=== PATIENT | female | born 1950 | race Caucasian/White ===

== ENCOUNTER → 2016-03-30 | Outpatient (CLI) | payer OTHER ==
--- NOTE | 2016-03-30 09:21 | MA ---
Screening Digital Mammogram with Digital Breast Tomosynthesis Clinical Indications: Routine screening. Previous history of right-sided breast cancer. The patient u nderwent lumpectomy along with chemotherapy and radiation therapy. Technique: Standard cephalocaudal projections are obtained. Digital breast tomosynthesis was perform ed in the MLO projection with reconstruction at 1.0 mm slice thickness and composite MLO views recons tructed. This examination is processed by the CAD computer aided detection system. Comparison: March 29, 2015; March 25, 2014; and studies dating back to November 13, 2007. Breast density: B; There are scattered areas of fibroglandular density. Findings: CAD was reviewed. There are no new masses, new clusters of microcalcifications, or significant axillary lymphadenopathy . Impression: Negative mammogram. BI-RADS 1. Recommendation: Routine screening mammogram is recommended in one year. [facility] will send a result letter to the patient. Negative mammography should not preclude additional workup of a clinically suspicious finding. The patient's information is entered into a reminder system with a target due date for her next mammo gram.
== END ==
LOC: FIMAGING 08:27
DX: Z12.31 Encounter for screening mammogram for malignant neoplasm of breast (principal); Z85.3 Personal history of malignant neoplasm of breast
CPT/HCPCS: G0202

== ENCOUNTER → 2017-04-05 | Outpatient (CLI) | payer OTHER | LOC: FIMAGING 07:52 | PROVIDERS: ATTEND Internal Medicine | DX: Z12.31 Encounter for screening mammogram for malignant neoplasm of breast (principal); Z85.3 Personal history of malignant neoplasm of breast ==

== ENCOUNTER 2017-11-21 13:17 | Inpatient (IN) | payer OTHER ==
--- NOTE | 2017-11-21 13:23 | EDPHY ---
H & P Stated Complaint: Hit head on Sunday. Confusion feels "out of it" Time Seen by Provider: 11/21/17 13:23 HPI/ROS: CHIEF COMPLAINT: Persistent headache, mild confusion HISTORY OF PRESENT ILLNESS: The patient presents the emergency department with complaints of a persistent frontal and occipital headache and mild confusion and concussive symptoms since falling and striking her head on Sunday. The patient is not anticoagulated. She denies any acute neck pain. She did sustain some bruising primarily to the left side of her body and face. She denies any acute bony tenderness in her arms or legs. She denies chest pain or shortness of breath. She denies any focal numbness or weakness. The patient denies prior history of head injury. Past medical history is noted reviewed per nurse's note. REVIEW OF SYSTEMS: A comprehensive 10 point review of systems is otherwise negative aside from elements mentioned in the history of present illness. Source: Patient Exam Limitations: No limitations - Personal History Current Tetanus/Diphtheria Vaccine: Yes - Medical/Surgical History Hx Asthma: No Hx Chronic Respiratory Disease: No Hx Diabetes: Yes Hx Cardiac Disease: No Hx Renal Disease: No Hx Cirrhosis: No Hx Alcoholism: No Hx HIV/AIDS: No Hx Splenectomy or Spleen Trauma: No Other PMH: HTN, Breast CA w/ chemo&rad, hypothyroidism, DM2; L Rib fx x2;. PSH : mitul; hysterectomy; R breast lumpectomy; wisdom teeth; T&A - Social History Smoking Status: Never smoked - Physical Exam Exam: General Appearance: Alert, no distress Head: Mild ecchymoses noted at the corner of the left mouth, no palpable hematoma Eyes: Pupils equal, round, reactive ENT, Mouth: No hemotympanum, no oral trauma Neck: Nontender, trachea midline, cleared via nexus criteria Respiratory: No chest wall tender, subcutaneous air, lungs clear bilaterally Cardiovascular: Regular rate and rhythm Abdomen: Abdomen is soft and nontender, pelvis stable Skin: Superficial ecchymoses noted to the extremities Back: No midline T/L/S pain Extremities: Nontender, full range of motion Neurological: A&Ox3, normal motor function, normal sensory exam Constitutional: Initial Vital Signs Temperature (C) 36.9 C 11/21/17 13:18 Heart Rate 72 11/21/17 13:18 Respiratory Rate 16 08/29/18 13:18 Blood Pressure 176/93 H 11/21/17 13:18 O2 Sat (%) 95 11/21/17 13:18 O2 Delivery Mode Room Air Allergies/Adverse Reactions: codeine [Codeine] Allergy (Verified 11/08/11 14:58) Home Medications: Medication Instructions Recorded Levothyroxine [Levothroid] 175 mcg PO DAILY 09/22/10 Citalopram Hydrobromide [celeXA 10 10 mg PO DAILY 11/08/11 MG] Levothyroxine [Synthroid 175 mcg 175 mcg PO DAILY #14 tab 11/08/11 (RX)] Pharmacy Completed 11/08/11 11/08/11 Valsartan [Diovan] 320 mg PO DAILY 11/08/11 Zolpidem Tartrate [Ambien 5MG (RX)] 5 mg PO HS PRN 11/08/11 metFORMIN HCL [Glucophage 1000 mg] 1,000 mg PO BIDMEAL 11/08/11 Hydrocodone/APAP 5/325 [[place] 1 - 2 tab PO Q4H PRN #14 tab 03/01/15 5/325] Hydrocodone/APAP 5/325 [[place] 1 - 2 each PO Q4-6PRN PRN #20 tab 04/05/15 5/325] Hydrocodone/APAP 5/325 [[place] 1 - 2 tab PO Q4H PRN #15 tab 05/06/15 5/325 (*)] Tramadol HCl 50 mg PO TID PRN #15 tablet 05/06/15 Medical Decision Making - Diagnostics Imaging Results: Imaging Impressions Head CT 11/21/17 13:23 Impression: Small left subdural hematoma with minimal left to right shift. Results called to Dr. Slava Martinez at 2:15 PM General information for patients regarding this examination can be found at [email or web address]. If you have questions or comments about this report, please contact me at [phone] (hospital) or [phone] (cell). ED Course/Re-evaluation: The patient presents to the ED with an ongoing moderate to severe frontal and occipital headache, bilateral in nature since striking her head approximately 4 days ago. The patient is noted to be neurologically intact. Given the duration of her symptoms with concussive symptoms a CT scan of the brain has been ordered to evaluate for intracranial hemorrhage or fracture. Patient's head CT scan does demonstrate a very small 7 mm left-sided subdural hematoma with less than 1 mm of shift. The patient is currently not anticoagulated. She takes no anti-platelet agents. She is neurologically intact. Consultation was made with Neurosurgery at 2:[address] Richar Springer from Neurosurgery evaluated the patient. He does recommend admission to the hospital under the care of the hospitalist service. I did consult with Dr. Stewart who said it would be appropriate to admit the patient to Medicine given this is a delayed presentation of a traumatic injury. Consultation was made with the hospitalist service at 4:00 p.m.. I spoke with Dr. Gary Montero who will admit the patient. Blood pressure management will be deferred to Medicine. Differential Diagnosis: Differential diagnosis considered includes fracture, sprain, dislocation, concussion Departure - Departure Disposition: [facility] Inpatient Acute Clinical Impression: Subdural hematoma Condition: Good Referrals: Claude Collier MD [Primary Care Provider] - As per Instructions
--- NOTE | 2017-11-21 15:27 | GCON ---
[f rep st] CONSULTATION NEUROSURGICAL CONSULTATION CHIEF COMPLAINT: The patient is a 67-year-old woman with headaches. HISTORY OF PRESENT ILLNESS: The patient reports falling on her face approximately 4 days ago and has had worsening headaches since then. Her headache is worse today than it was yesterday and is descri bed as a dull ache. She denies any focal neurologic deficits and presented to the emergency room for evaluation because of the worsening headaches. She has been taking Aleve for her pain. PAST MEDICAL AND SURGICAL HISTORY: Anxiety, hypothyroidism, hypertension, type 2 diabetes, and obesi ty. MEDICATIONS ON ADMISSION: Metformin, Synthroid, Zoloft, and trazodone. DRUG ALLERGIES: Codeine, which causes stomach pain and back pain. SOCIAL HISTORY: The patient lives alone and does not drink or smoke. GENERAL MEDICAL EXAMINATION: The lungs are clear. Cardiovascular examination reveals a regular rate and rhythm. NEUROLOGIC EXAMINATION: The patient is awake, alert, and oriented x4. Her speech is fluent and appr opriate. Extraocular movements are intact. She has 5/5 strength throughout, and reflexes and sensat ion are within normal limits. DIAGNOSTIC STUDIES: CT scan of the brain demonstrates an approximately 9 mm thick acute subdural hem atoma in the left frontal convexity without significant mass effect, shift, or evidence of hydrocepha chantal. IMPRESSION/RECOMMENDATIONS: This is a 67-year-old woman with progressively worsening headaches after a fall. She has an acute subdural. It is not all that big, but the fact that her headaches are wor sening is a little bothersome along with the fact that she has been taking Aleve, which is a blood th inner. She also lives at home, so I am reluctant to send her home in that situation. In addition, er blood pressure is currently 201/77. I would like to put her on Keppra for 2 weeks, admit her to [facility] overnight for observation, repeat the head CT in the morning, and, if she looks good and the head CT is stable, then she can go home at that time. /[id number]/MODL
[2017-11-21] MEDS ORDERED: levETIRAcetam 500 MG TAB PO ONE (16:19)
[2017-11-21] MEDS ORDERED: PROMETHAZINE HCL 25 MG/ML INJ IVP PRN (17:39)
[2017-11-21] MEDS ORDERED: hydrALAZINE 20 MG/ML VIAL IVP PRN (17:39)
[2017-11-21] MEDS ORDERED: LORazepam 0.5 MG TAB PO PRN (17:39)
[2017-11-21] MEDS ORDERED: ONDANSETRON 4 MG/2 ML VIAL IVP PRN (17:39)
[2017-11-21] MEDS ORDERED: oxyCODONE IR 5 MG TAB PO PRN (17:39)
[2017-11-21] MEDS ORDERED: HYDROmorphONE/DILAUDID 1 MG/ML INJ IVP PRN (17:39)
[2017-11-21] MEDS ORDERED: ONDANSETRON DISINTEGRATING 4 MG TAB PO PRN (17:39)
[2017-11-21] MEDS ORDERED: FLUTICASONE NASAL 120 SPRAYS/16 GM MDI EACHNARE PRN (17:42)
[2017-11-21] MEDS: ACETAMINOPHEN 325 MG TAB PO PRN (18:29)
[2017-11-21] MEDS: LOSARTAN POTASSIUM 50 MG TAB PO SCH (18:31)
--- NOTE | 2017-11-21 18:45 | PDGENHP ---
History and Physical - Chief Complaint headache - History of Present Illness 67 yo F with PMH that includes DM2 and HTN presenting with headache and mild confusion following a fall on her face 4 days prior. Patient notes she had been leaving her grandson's football game when she tripped over a speedbump and fell flat on her face. She did not lose consciousness and at the time felt that she had not sustained major injuries. When her headache and mild confusion did not seem to be improving she decided to come to the ER for further eval. She notes that she did not take any of her usual medications today due to coming to the ER. She otherwise states she feels fine and in fact has plans to return to work as soon as tomorrow if she is cleared medically for that. History Information - Allergies/Home Medication List Allergies/Adverse Reactions: codeine [Codeine] Allergy (Verified 11/21/17 16:57) Home Medications: Levothyroxine [Levothroid] 175 mcg PO DAILY 09/22/10 [Last Taken 11/20/17] metFORMIN HCL [Glucophage 1000 mg] 1,000 mg PO BIDMEAL 11/08/11 [Last Taken ] Fluticasone Nasal [Flonase Nasal [place] (RX)] 1 sprays [place] DAILY PRN [Last Taken 11/20/17] Losartan Potassium 100 mg PO BID 11/21/17 [Last Taken 11/20/17] Naproxen Sodium [Aleve 220 MG (*)] 220 mg PO BID PRN 11/21/17 [Last Taken ] Sertraline HCl [Zoloft 50mg (*)] 50 mg PO DAILY 11/21/17 [Last Taken 11/20/17] Simvastatin 20 mg PO HS 11/21/17 [Last Taken 11/20/17] amLODIPine BESYLATE [Norvasc 5 mg (*)] 5 mg PO DAILY 11/21/17 [Last Taken ] glipiZIDE [Glipizide] 5 mg PO BID 11/21/17 [Last Taken 11/20/17] traZODone [traZODONE 50MG (*)] 50 mg PO HS 11/21/17 [Last Taken 11/20/17] I have personally reviewed and updated: family history, medical history, social history, surgical history - Past Medical History diabetes type 2, hypertension, hyperlipidemia, psychiatric history (anxiety/ depression) Additional medical history: hypothyroid. obesity - Surgical History Reports: no pertinent surgical hx - Family History Positive for: CAD, stroke - Social History Smoking Status: Never smoked Alcohol Use: None Drug Use: None Additional social history: , lives alone, works here at [employer], has 1 son and 1 grandson Review of Systems Review of Systems: ROS: 10pt was reviewed & negative except for what was stated in HPI & below Physical Exam Physical Exam: Temp Pulse Resp BP Pulse Ox 36.9 C 68 18 180/77 H 96 11/21/17 13:18 11/21/17 16:58 11/21/17 16:58 11/21/17 18:31 11/21/17 16:58 Constitutional: no apparent distress, appears nourished Eyes: PERRL Ears, Nose, Mouth, Throat: moist mucous membranes, hearing normal Cardiovascular: regular rate and rhythym, no murmur, rub, or gallop, No edema Respiratory: no respiratory distress, no rales or rhonchi, clear to auscultation Gastrointestinal: normoactive bowel sounds, soft, non-tender abdomen Genitourinary: no bladder fullness Skin: warm, normal color Musculoskeletal: full muscle strength Neurologic: AAOx3, CN II-XII Intact Psychiatric: interacting appropriately Lab Data & Imaging Review Visualized and Interpreted imaging results: Yes Interpretation: head CT: small left SDH with slight midline shift Assessment & Plan Assessment: Subdural hematoma (Acute) 67 yo F with PMH of HTN and DM presenting several days post head injury with small SDH # SDH: relatively small and patient does appear to be neurologically intact. Appreciate NSG eval. Will plan to monitor overnight given uncontrolled HTN and ongoing TOVAR, serial neuro exams. Will have pt/ot eval. Did discuss with patient that given brain injury, recommendation would be for "low stimulation" at least until she is asymptomatic and therefore would not recommend she return to work in am. # HTNsive urgency: with BP in the 190s in the ER in the setting of being off of her medications, will resume home meds as well as PRN hydralazine and monitor for now, goal sbp < 140 # DM2: will hold metoprolol in house in case further imaging becomes necessary, SSI, last A1c was 8.0 # hypothyroid: will continue lt4 # admit to IP status, given high risk presenting issues she will likely require > 48 hours stay for eval/mgmt of above Patient new to my care. Old records reviewed and summarized as above. Care plan reviewed with ER doctor as above.
[2017-11-21 19:26] LABS: PLATELET COUNT 206 10^3/uL (150-400)
[2017-11-21] MEDS: HYDROCODONE/APAP 5/325 TAB PO PRN (20:36)
[2017-11-21] MEDS ORDERED: ATORVASTATIN CALCIUM 10 MG TAB PO SCH (21:00)
[2017-11-21] MEDS ORDERED: traZODone 50 MG TAB PO SCH (21:00)
[2017-11-21] MEDS ORDERED: LOSARTAN POTASSIUM 50 MG TAB PO SCH (21:00)
[2017-11-22] MEDS: ACETAMINOPHEN 325 MG TAB PO PRN (00:19)
[2017-11-22 07:07] LABS: PLATELET COUNT 175 10^3/uL (150-400)
--- NOTE | 2017-11-22 07:12 | PDMN ---
Medical Necessity Medical necessity: Pt meets inpt criteria per MD order and [facility] [place] Traumatic Brain [place], Non-surgical Treatment, 2 days. Est LOS>2MN for eval/management of subdural hematoma, high risk presenting issues. Pt presented w/worsening headaches, mild confusion, and concussive symptoms and hypertension after recent fall in which she hit her head. CT of head confirms sm L SDH w/slight midline shift, BP in 190's upon arrival to ER. Neurosurg consult, IV Hydralazine as needed, frequent neuro checks, pain control, PT/OT/SP evals pending.
--- NOTE | 2017-11-22 07:32 | SOAPPROG ---
SOAP Progress Note Assessment/Plan: Assessment: 67 yo F with left sided acute subdural hematoma after fall four days ago Plan: neuro: stable and doing well repeat head ct this am at 8 PT/OT/ST please call with neuro changes discussed with Dr Pierce 11/22/17 07:27 11/22/17 07:29 Subjective: continued mild headache, no N/V. No weakness. Objective: Vital Signs Temp Pulse Resp BP Pulse Ox 36.3 C 66 16 120/58 L 93 11/22/17 00:00 11/22/17 00:00 11/22/17 00:00 11/22/17 00:00 11/22/17 00:00 Laboratory Results 11/22/17 06:47 11/21/17 11/22/17 11/23/17 05:59 05:59 05:59 Intake Total 520 Balance 520 AAOx4, +FC PERRL, EOMI, no facial droop 5/5 + light touch ICD10 Worksheet Patient Problems: Problems Problem Status Onset Subdural hematoma Acute
[2017-11-22] MEDS: LOSARTAN POTASSIUM 50 MG TAB PO SCH (08:39)
--- NOTE | 2017-11-22 08:43 | GCON ---
[f rep st] CONSULTATION NEUROLOGIC CONSULTATION. REFERRING PHYSICIAN: Gary Montero MD HISTORY: The patient is a 67-year-old woman whom I am asked to see in neurologic consultation regard ing headache, and she has an acute left subdural hematoma. She says that she had a fall 5 days ago a nd simply fell and struck her face, and was stable and went home, but started developing increased he adache which led to coming to the hospital where the subdural was identified yesterday in the emergen cy room on a CT. She does not have any specific neurologic deficits except perhaps a little bit of t rouble with her speech. The scan showed minimal qetr-mg-cemwm shift and was about 7 mm in width. Dora james has been stable overnight in the ICU. PAST MEDICAL HISTORY: Notable for troubles controlling weight, hypothyroidism, hyperlipidemia. She has type 2 diabetes, hypertension. No smoking or alcohol. She is and works here at the [employer]. FAMILY HISTORY: Stroke and coronary disease. MEDICATION: Tylenol, Lipitor, hydralazine, Keppra which was just added as a prophylactic for seizure risk from Dr. Springer 500 mg twice daily, sertraline, trazodone. ALLERGY: Codeine. REVIEW OF SYSTEMS: Unremarkable except for that noted above. PHYSICAL EXAMINATION: VITAL SIGNS: Blood pressure 120/58, pulse of 66, respirations 16, temperature 36.3. GENERAL: She is overweight, in no acute distress. NECK: Supple, with no bruits or masses. CARDIAC: Regular rate and rhythm with no murmur. NEURO: She is alert and oriented with no cogniti ve impairment. Pupils are 3 mm and reactive. Extraocular movements are intact. Normal facial sensa tion and strength. Motor exam normal. Muscle bulk and tone with 5/5 strength. Preserved sensation. Reflexes 2+ and symmetric. IMPRESSION: Total unit time of 70 minutes. The patient has a left subdural hematoma with minimal [id number] shift, but no measurable neurolog ic deficit. She is going to have a repeat head CT. If that is stable, she is likely to be discharge d after clearance from Neurosurgery and does not need neurologic followup, but followup with Neurosur jaylan as needed as well as her primary care. She is going to work on lifestyle risk factors to help i mprove her cardiovascular health in general. /[id number]/MODL
[2017-11-22 08:46] VITALS: BP 165/87
[2017-11-22] MEDS ORDERED: levETIRAcetam 500 MG TAB PO SCH (09:00)
[2017-11-22] MEDS ORDERED: LEVOTHYROXINE 175 MCG TAB PO SCH (09:00)
[2017-11-22] MEDS ORDERED: SERTRALINE HCL 50 MG TAB PO SCH (09:00)
[2017-11-22] MEDS ORDERED: amLODIPine BESYLATE 5 MG TAB PO SCH (09:00)
[2017-11-22] MEDS ORDERED: metFORMIN HCL 500 MG TAB PO SCH (11:15)
[2017-11-22] MEDS: HYDROCODONE/APAP 5/325 TAB PO PRN (14:02)
== END 2017-11-22 14:30 | disposition home or self-care (01) | DRG 87 ==
LOC: OBSVTOIN 16:37 → F2N 17:04
PROVIDERS: ADMIT Internal Medicine; ATTEND Internal Medicine
DX: S06.5X0A Traumatic subdural hemorrhage without loss of consciousness, initial encounter (principal); W01.198A Fall on same level from slipping, tripping and stumbling with subsequent striking against other object, initial encounter; I10 Essential (primary) hypertension; E11.9 Type 2 diabetes mellitus without complications; E03.9 Hypothyroidism, unspecified; F41.9 Anxiety disorder, unspecified; Y93.82 Activity, spectator at an event; Z85.3 Personal history of malignant neoplasm of breast; Z79.84 Long term (current) use of oral hypoglycemic drugs
CPT/HCPCS: 92523-GN; 97161-GP; 97165-GO; J0360

== ENCOUNTER → 2017-11-28 | Outpatient (CLI) | payer OTHER | LOC: FIMAGING 11:33 | PROVIDERS: ATTEND Neurological Surgery | DX: S06.5X0D Traumatic subdural hemorrhage without loss of consciousness, subsequent encounter (principal) ==

== ENCOUNTER → 2017-12-05 | Outpatient (CLI) | payer OTHER | LOC: FIMAGING 10:39 | PROVIDERS: ATTEND Physician Assistant Surgical | DX: S06.5X0D Traumatic subdural hemorrhage without loss of consciousness, subsequent encounter (principal) ==

== ENCOUNTER 2017-12-16 16:37 | Observation (INO) | payer OTHER ==
--- NOTE | 2017-12-16 16:59 | EDPHY ---
H & P Stated Complaint: Facial droop starting approx 1615 Time Seen by Provider: 12/16/17 16:47 HPI/ROS: CHIEF COMPLAINT: Trouble with word finding HISTORY OF PRESENT ILLNESS: The patient is a 67-year-old female whose friend brings her to the ER with stroke symptoms. At 4:15 p.m. They were talking and her friend noticed that she had trouble finding the correct words. She stated that she could think clearly but could not think of the right words. Friend then noticed slurred speech and droopy face on the right. The symptoms persisted for about half an hour but have improved. She continues to have trouble with word finding. She was admitted to the hospital 3 weeks ago after a traumatic subdural hemorrhage. She was observed and had improvement of her symptoms and discharged without surgery. She is not on any blood thinners. She denies any history of cardiac disease but does have history of hypertension and type 2 diabetes. No headache Severity: Severe Modifying factors: Improved with time REVIEW OF SYSTEMS: Constitutional: denies: chills, fever, recent illness, recent injury EENTM: denies: blurred vision, double vision, nose congestion Respiratory: denies: cough, shortness of breath Cardiac: denies: chest pain, irregular heart rate, lightheadedness, palpitations Gastrointestinal/Abdominal: denies: abdominal pain, diarrhea, nausea, vomiting, blood streaked stools Genitourinary: denies: dysuria, frequency, hematuria, pain Musculoskeletal: denies: joint pain, muscle pain Skin: denies: lesions, rash, jaundice, bruising Neurological: The see HPI Hematologic/Lymphatic: denies: blood clots, easy bleeding, easy bruising Immunologic/allergic: denies: HIV/AIDS, transplant 10 systems reviewed and negative except as noted EXAM: GENERAL: Well-appearing, well-nourished and in no acute distress. HEAD: Atraumatic, normocephalic. EYES: Pupils equal round and reactive to light, extraocular movements intact, sclera anicteric, conjunctiva are normal. ENT: TMs normal, nares patent, oropharynx clear without exudates. Moist mucous membranes. NECK: Normal range of motion, supple without lymphadenopathy or JVD. LUNGS: Breath sounds clear to auscultation bilaterally and equal. No wheezes rales or rhonchi. HEART: Regular rate and rhythm without murmurs, rubs or gallops. ABDOMEN: Soft, nontender, normoactive bowel sounds. No guarding, no rebound. No masses appreciated. BACK: No CVA tenderness, no spinal tenderness, step-offs or deformities EXTREMITIES: Normal range of motion, no pitting or edema. No clubbing or cyanosis. NEUROLOGICAL: Cranial nerves II through XII grossly intact. Clear speech but trouble with word finding and thinking of the correct words. Cannot think of watch or shoe laces or the town that we are in. She can't think of glove and president and some other things. Gait not assessed. 5/5 strength in all extremities, normal movement in all extremities, normal sensation, normal reflexes PSYCH: Normal mood, normal affect. SKIN: Warm, dry, normal turgor, no visible rashes or lesions. Source: Patient Exam Limitations: No limitations - Personal History Current Tetanus/Diphtheria Vaccine: Yes - Medical/Surgical History Hx Asthma: No Hx Chronic Respiratory Disease: No Hx Diabetes: Yes Hx Cardiac Disease: No Hx Renal Disease: No Hx Cirrhosis: No Hx Alcoholism: No Hx HIV/AIDS: No Hx Splenectomy or Spleen Trauma: No Other PMH: HTN, Breast CA w/ chemo&rad, hypothyroidism, DM2; L Rib fx x2;. PSH : mitul; hysterectomy; R breast lumpectomy; wisdom teeth; T&A - Social History Smoking Status: Never smoked Alcohol Use: Sober Drug Use: None Constitutional: Initial Vital Signs Temperature (C) 36.4 C 12/16/17 16:42 Heart Rate 89 12/16/17 16:42 Respiratory Rate 16 12/16/17 16:42 Blood Pressure 203/123 H 12/16/17 16:42 O2 Sat (%) 94 12/16/17 16:42 O2 Delivery Mode Room Air Allergies/Adverse Reactions: codeine [Codeine] Allergy (Verified 12/03/17 15:39) GI Pain Home Medications: Medication Instructions Recorded metFORMIN HCL [Glucophage 1000 mg] 1,000 mg PO BIDMEAL 11/08/11 Fluticasone Nasal [Flonase Nasal 1 sprays EACHNARE DAILY PRN 11/21/17 [facility]] Losartan Potassium 100 mg PO BID 11/21/17 Sertraline HCl [Zoloft 50mg (*)] 50 mg PO DAILY 11/21/17 Simvastatin 20 mg PO HS 11/21/17 glipiZIDE [Glipizide] 5 mg PO BID 11/21/17 traZODone [traZODONE 50MG (*)] 50 mg PO HS PRN 11/21/17 levETIRAcetam [Keppra 500 mg (*)] 500 mg PO BID #60 tab 11/22/17 Acetaminophen [Tylenol ES 500 mg 1,000 mg PO Q6 PRN 12/03/17 (*)] Levothyroxine [Synthroid 150 mcg 150 mcg PO DAILY06 12/03/17 (*)] amLODIPine BESYLATE [Norvasc 5 mg 5 mg PO DAILY 12/16/17 (*)] Medical Decision Making - Diagnostics EKG Interpretation: An EKG obtained and was read and documented in trace view. Please see trace view for full reading and report. 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 Decrease in size of the previously noted left subdural hematoma with resolution of mass effect. 2. No definite acute cortical ischemia is identified. Results called and discussed with Chidi Geronimo MD on December 16, 2017 at 1710 hours. Head CTA 12/16/17 17:10 Impression: Negative CT angiography of the neck with no arterial occlusive disease identified. CT Angiography of the Head With Attention to the [place] Reason for examination: Worsening headache; evaluate for arterial occlusive disease. Technique: A spiral acquisition was performed from the base of the brain to the vertex during rapid intravenous administration of 85 mL of Isovue-370. This contrast volume was utilized for evaluation of the neck and head. Axial images are obtained at 0.6 mm thickness and the examination is reviewed on the workstation in multiple window and level settings. Sagittal and coronal reformats are performed and three-dimensional reformations are performed by the radiologist on the workstation. Dose reduction techniques were utilized. Findings: There is excellent arterial opacification. The great vessels at the base of the brain are normal in appearance. The anterior and middle cerebral arteries appear normal. The [place] is intact with both anterior and posterior communicating arteries identified. The basilar artery as well as posterior cerebral arteries are normal. No regions of stenosis are identified. No hemorrhages are seen and no vascular malformations are identified. No areas of abnormal perfusion are identified and there are no findings to suggest cortical ischemia. The left subdural hematoma is noted and this was described on noncontrast CT scan of the head performed earlier today. Impression: 1. Negative CT angiography of the head with attention to the great vessels of the [place]. 2. See above report for additional findings. Results called and discussed with CHIDI GERONIMO M.D. on 12/16/2017 at 18:08. Note: All stenoses are calculated using NASCET Criteria. Neck CTA 12/16/17 17:10 Impression: Negative CT angiography of the neck with no arterial occlusive disease identified. CT Angiography of the Head With Attention to the [place] Reason for examination: Worsening headache; evaluate for arterial occlusive disease. Technique: A spiral acquisition was performed from the base of the brain to the vertex during rapid intravenous administration of 85 mL of Isovue-370. This contrast volume was utilized for evaluation of the neck and head. Axial images are obtained at 0.6 mm thickness and the examination is reviewed on the workstation in multiple window and level settings. Sagittal and coronal reformats are performed and three-dimensional reformations are performed by the radiologist on the workstation. Dose reduction techniques were utilized. Findings: There is excellent arterial opacification. The great vessels at the base of the brain are normal in appearance. The anterior and middle cerebral arteries appear normal. The [place] is intact with both anterior and posterior communicating arteries identified. The basilar artery as well as posterior cerebral arteries are normal. No regions of stenosis are identified. No hemorrhages are seen and no vascular malformations are identified. No areas of abnormal perfusion are identified and there are no findings to suggest cortical ischemia. The left subdural hematoma is noted and this was described on noncontrast CT scan of the head performed earlier today. Impression: 1. Negative CT angiography of the head with attention to the great vessels of the [place]. 2. See above report for additional findings. Results called and discussed with CHIDI GERONIMO M.D. on 12/16/2017 at 18:08. Note: All stenoses are calculated using NASCET Criteria. Imaging: Discussed imaging studies w/ call center consultant Radiologist ED Course/Re-evaluation: Cardiac alert was called at triage. The patient's symptoms to be improving and she had a recent head bleed so she will not be a tPA candidate but will proceed with consolidation and imaging. 5:10 p.m. I discussed the case with Dr. Flores from [facility]. He agrees that she is not a tPA candidate. He suspects that she had a seizure based on her previous subdural. The patient does take Keppra. He does recommend proceeding with CT angio to rule out large vessel occlusion. 6:40 p.m. the patient is not completely better. She has no facial droop or slurred speech but has some trouble still with word-finding. Her friend has a difficult time telling me whether not this is her baseline since her subdural 3 weeks ago. Patient however tells me that this is new. I have paged [facility]. 6:50 p.m. I was called to the room by nursing staff because the patient is again having slurred speech. On my examination she does not have a droop or tongue deviation. No pronator drift etc. 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 I ordered a mg of Ativan. I spoke with [facility] who agrees with the Ativan and recommends increasing her Keppra to 1000 and being in the hospital for MRI tomorrow. I will page hospital service. 7:15 p.m. I discussed the case with Dr. Fritz who will admit to the hospital service Differential Diagnosis: Partial list of the Differential diagnosis considered include but were not limited to; CVA, seizure, hemorrhage and although unlikely based on the history and physical exam, I also considered infection, tumor. I discussed these differential diagnoses and the plan with the patient as well as the usual and expected course. The patient understands that the diagnosis is provisional and that in medicine we are not always correct and that further workup is often warranted. Usual and customary warnings were given. All of the patient's questions were answered. The patient was instructed to return to the emergency department should the symptoms at all worsen or return, otherwise to followup with the physician as we discussed. - Data Points Laboratory Results: Laboratory Results 12/16/17 17:20 12/16/17 17:20 12/16/17 12/16/17 12/16/17 17:21 17:20 17:20 WBC RBC Hgb POC Hgb 14.6 gm/dL gm/dL (12.6-16.3) Hct POC Hct 43 % % (38-47) MCV MCH MCHC RDW Plt Count MPV Neut % (Auto) Lymph % (Auto) [place] % (Auto) Eos % (Auto) Baso % (Auto) Nucleat RBC Rel Count Absolute Neuts (auto) Absolute Lymphs (auto) Absolute Monos (auto) Absolute Eos (auto) Absolute Basos (auto) Absolute Nucleated RBC Immature Gran % Seg Neutrophils % Band Neutrophils % Lymphocytes % Monocytes % Eosinophils % Basophils % Metamyelocytes % Myelocytes % Promyelocytes % Blast Cells % Immature Gran # Absolute Seg Neuts Absolute Band Neuts Absolute Lymphocytes Absolute Monocytes Absolute Eosinophils Absolute Basophils Absolute Metamyelocyte Absolute Myelocytes Absolute Promyelocytes Absolute Plasma Cells Nucleated RBCs RBC/WBC/PLT Morphology Absolute Blast Cells Plasma Cells % Platelet Estimate PT 12.6 SEC SEC (12.0-15.0) INR 0.92 (0.83-1.16) APTT 22.3 SEC L SEC (23.0-38.0) POC Sodium 144 mEq/L mEq/L (135-145) Sodium 140 mEq/L mEq/L (135-145) POC Potassium 3.3 mEq/L mEq/L (3.3-5.0) Potassium 3.7 mEq/L mEq/L (3.3-5.0) POC Chloride 105 mEq/L mEq/L (97-110) Chloride 106 mEq/L mEq/L (97-110) Carbon Dioxide 23 mEq/l mEq/l (22-31) Anion Gap 11 mEq/L mEq/L (8-16) POC BUN 12 mg/dL mg/dL (7-23) BUN 13 mg/dL mg/dL (7-23) Creatinine 0.6 mg/dL mg/dL (0.6-1.0) POC Creatinine 0.6 mg/dL mg/dL (0.6-1.0) Estimated GFR > 60 Glucose 107 mg/dL H mg/dL (70-100) POC Glucose 108 mg/dL H mg/dL (70-100) Calcium 9.6 mg/dL mg/dL (8.5-10.4) 12/16/17 12/16/17 17:20 17:03 WBC 5.45 10^3/uL 10^3/uL (3.80-9.50) RBC 4.35 10^6/uL 10^6/uL (4.18-5.33) Hgb 14.4 g/dL g/dL (12.6-16.3) POC Hgb Hct 41.6 % % (38.0-47.0) POC Hct MCV 95.6 fL fL (81.5-99.8) MCH 33.1 pg pg (27.9-34.1) MCHC 34.6 g/dL g/dL (32.4-36.7) RDW 12.7 % % (11.5-15.2) Plt Count 216 10^3/uL 10^3/uL (150-400) MPV 9.4 fL fL (8.7-11.7) Neut % (Auto) Not Reported Lymph % (Auto) Not Reported [place] % (Auto) Not Reported Eos % (Auto) Not Reported Baso % (Auto) Not Reported Nucleat RBC Rel Count Not Reported Absolute Neuts (auto) Not Reported Absolute Lymphs (auto) Not Reported Absolute Monos (auto) Not Reported Absolute Eos (auto) Not Reported Absolute Basos (auto) Not Reported Absolute Nucleated RBC Not Reported Immature Gran % Not Reported Seg Neutrophils % 55.1 % % Band Neutrophils % 0.0 % % Lymphocytes % 35.7 % % Monocytes % 7.2 % % Eosinophils % 2.0 % % Basophils % 0.0 % % Metamyelocytes % 0.0 % % Myelocytes % 0.0 % % Promyelocytes % 0.0 % % Blast Cells % 0.0 % % Immature Gran # Not Reported Absolute Seg Neuts 3.00 10^/uL 10^/uL (1.70-6.50) Absolute Band Neuts 0.00 10^3/uL 10^3/uL (0.00-0.70) Absolute Lymphocytes 1.95 10^3/uL 10^3/uL (1.00-3.00) Absolute Monocytes 0.39 10^3/uL 10^3/uL (0.30-0.80) Absolute Eosinophils 0.11 10^3/uL 10^3/uL (0.03-0.40) Absolute Basophils 0.00 10^3/uL L 10^3/uL (0.02-0.10) Absolute Metamyelocyte 0.00 10^3/mL 10^3/mL (0.00-0.00) Absolute Myelocytes 0.00 10^3/mL 10^3/mL (0.00-0.00) Absolute Promyelocytes 0.00 10^3/uL 10^3/uL (0.00-0.00) Absolute Plasma Cells 0.00 10^3/uL 10^3/uL (0.00-0.00) Nucleated RBCs 0 /100 WBC /100 WBC (0-0) RBC/WBC/PLT Morphology NORMAL (NORMAL) Absolute Blast Cells 0.00 10^3/uL 10^3/uL (0.00-0.00) Plasma Cells % 0.0 % % Platelet Estimate ADEQUATE (ADEQ) PT INR APTT POC Sodium Sodium POC Potassium Potassium POC Chloride Chloride Carbon Dioxide Anion Gap POC BUN BUN Creatinine POC Creatinine Estimated GFR Glucose POC Glucose 111 mg/dL H mg/dL (70-100) Calcium Medications Given: Discontinued Medications Levetiracetam (Keppra (Premix)) 100 mls @ 400 mls/hr IV EDNOW ONE Stop: 12/16/17 19:09 Last Admin: 12/16/17 19:22 Dose: 100 mls Lorazepam (Ativan Injection) 1 mg IVP EDNOW ONE Stop: 12/16/17 18:54 Last Admin: 12/16/17 18:54 Dose: 1 mg Point of Care Test Results: Chemistry 12/16/17 12/16/17 17:21 17:03 POC Sodium 144 mEq/L mEq/L (135-145) POC Potassium 3.3 mEq/L mEq/L (3.3-5.0) POC Chloride 105 mEq/L mEq/L (97-110) POC BUN 12 mg/dL mg/dL (7-23) POC Creatinine 0.6 mg/dL mg/dL (0.6-1.0) POC Glucose 108 mg/dL H mg/dL 111 mg/dL H mg/dL (70-100) (70-100) ISTAT H&H 12/16/17 17:21 POC Hgb 14.6 gm/dL gm/dL (12.6-16.3) POC Hct 43 % % (38-47) Departure - Departure Disposition: [facility] Inpatient Acute Clinical Impression: Seizure Condition: Fair
--- NOTE | 2017-12-16 17:14 | CPEKG ---
Test Reason : OPEN Blood Pressure : / mmHG Vent. Rate : 084 BPM Atrial Rate : 085 BPM P-R Int : 167 ms QRS Dur : 095 ms QT Int : 356 ms P-R-T Axes : 050 011 070 degrees QTc Int : 421 ms Sinus rhythm Anterior infarct, old Nonspecific T abnormalities, lateral leads Confirmed by Liu Carter ([id number]), food editor Kyaw Geronimo ([id number]) on 12/16/2017 5:13:47 PM Referred By: Confirmed By:Liu Carter
[2017-12-16 17:27] LABS: PLATELET COUNT 216 10^3/uL (150-400)
[2017-12-16] MEDS ORDERED: IOPAMIDOL (ISOVUE 370) 100 ML BTL IV ONE (17:28)
[2017-12-16 17:35] LABS: INR 0.92 (0.83-1.16); PROTIME(PATIENT) 12.6 SEC (12.0-15.0)
[2017-12-16] MEDS ORDERED: LORazepam 2 MG/ML INJ ONE (18:52)
[2017-12-16] MEDS ORDERED: LORazepam 2 MG/ML INJ IVP ONE (18:53)
[2017-12-16] MEDS ORDERED: levETIRAcetam 1000MG/NACL 100 ML IV ONE (18:55)
[2017-12-16] MEDS ORDERED: ACETAMINOPHEN 325 MG TAB PO PRN (22:37)
[2017-12-16] MEDS ORDERED: ONDANSETRON DISINTEGRATING 4 MG TAB PO PRN (22:37)
[2017-12-16] MEDS ORDERED: ONDANSETRON 4 MG/2 ML VIAL IVP PRN (22:37)
[2017-12-16] MEDS ORDERED: D50W 25 GM/50 ML SYR IVP PRN (23:13)
--- NOTE | 2017-12-17 00:25 | PDGENHP ---
History and Physical - Chief Complaint Word finding difficulty - History of Present Illness 67 yo F w/ hx of DM, HTN, breast CA, and recent SDH presents with word finding difficulty. Patient tells me she was feeling well until today when she went over to a neighbor's house to watch the [employer] game. At around 1 PM, her neighbor noted that the patient was having difficulty with speech, both with word finding difficulty and some slurring. Per report from the ED there may have been some transient, R sided facial droop as well. She was brought to the ED that this point for evaluation. In the ED evaluation from [facility] yielded suspicion for a seizure noting recent SDH so patient was given Keppra and Ativan. CTH and CTA Head/Neck did not show any acute changes. At the time of my evaluation the patient has a normal neurologic exam. During our conversation, however, she does seem to have a hard time finding certain words although she forms them well and is fully alert and oriented. Case discussed with Dr. Lua, records reviewed in EMR. History Information - Allergies/Home Medication List Allergies/Adverse Reactions: codeine [Codeine] Allergy (Verified 12/03/17 15:39) GI Pain Home Medications: metFORMIN HCL [Glucophage 1000 mg] 1,000 mg PO BIDMEAL 11/08/11 [Last Taken ] Fluticasone Nasal [Flonase Nasal [place]] 1 sprays EACHNARE DAILY PRN 11/21/17 [ Last Taken 11/20/17] Losartan Potassium 100 mg PO BID 11/21/17 [Last Taken 12/16/17] Sertraline HCl [Zoloft 50mg (*)] 50 mg PO DAILY 11/21/17 [Last Taken 12/16/17] Simvastatin 20 mg PO HS 11/21/17 [Last Taken 12/15/17] glipiZIDE [Glipizide] 5 mg PO BID 11/21/17 [Last Taken 12/15/17] traZODone [traZODONE 50MG (*)] 50 mg PO HS PRN 11/21/17 [Last Taken 11/20/17] Acetaminophen [Tylenol ES 500 mg (*)] 1,000 mg PO Q6 PRN 12/03/17 [Last Taken Unknown] Levothyroxine [Synthroid 150 mcg (*)] 150 mcg PO DAILY06 12/03/17 [Last Taken ] amLODIPine BESYLATE [Norvasc 5 mg (*)] 5 mg PO DAILY 12/16/17 [Last Taken ] I have personally reviewed and updated: family history, medical history - Past Medical History diabetes type 2, hypertension, hyperlipidemia, psychiatric history (anxiety/ depression) Additional medical history: hypothyroid. obesity - Surgical History Additional surgical history: Lumpectomy for hx of breast CA - Family History Positive for: CAD, stroke - Social History Smoking Status: Never smoked Alcohol Use: Sober Drug Use: None Additional social history: , lives alone, works here at [employer], has 1 son and 1 grandson Review of Systems Review of Systems: ROS: 10pt was reviewed & negative except for what was stated in HPI & below Physical Exam Physical Exam: Temp Pulse Resp BP Pulse Ox 37.5 C 75 18 152/68 H 93 12/16/17 20:24 12/16/17 23:29 12/16/17 23:29 12/16/17 23:29 12/16/17 23:29 Constitutional: no apparent distress, not in pain Eyes: PERRL, EOMI Ears, Nose, Mouth, Throat: moist mucous membranes, no oral mucosal ulcers Cardiovascular: regular rate and rhythym, no murmur, rub, or gallop Respiratory: no respiratory distress, clear to auscultation Gastrointestinal: normoactive bowel sounds, soft, non-tender abdomen Skin: warm, normal color Musculoskeletal: full muscle strength, no muscle tenderness Neurologic: AAOx3, sensation intact bilaterally, CN II-XII Intact, other (Mild word finding difficulty noted), No weakness, No numbness, No facial droop Psychiatric: interacting appropriately, not anxious Lab Data & Imaging Review 12/16/17 17:20 12/16/17 17:20 WBC 5.45 10^3/uL (3.80-9.50) 12/16/17 17:20 RBC 4.35 10^6/uL (4.18-5.33) 12/16/17 17:20 Hgb 14.4 g/dL (12.6-16.3) 12/16/17 17:20 POC Hgb 14.6 gm/dL (12.6-16.3) 12/16/17 17:21 Hct 41.6 % (38.0-47.0) 12/16/17 17:20 POC Hct 43 % (38-47) 12/16/17 17:21 MCV 95.6 fL (81.5-99.8) 12/16/17 17:20 MCH 33.1 pg (27.9-34.1) 12/16/17 17:20 MCHC 34.6 g/dL (32.4-36.7) 12/16/17 17:20 RDW 12.7 % (11.5-15.2) 12/16/17 17:20 Plt Count 216 10^3/uL (150-400) 12/16/17 17:20 MPV 9.4 fL (8.7-11.7) 12/16/17 17:20 Neut % (Auto) Not Reported 12/16/17 17:20 Lymph % (Auto) Not Reported 12/16/17 17:20 [place] % (Auto) Not Reported 12/16/17 17:20 Eos % (Auto) Not Reported 12/16/17 17:20 Baso % (Auto) Not Reported 12/16/17 17:20 Nucleat RBC Rel Count Not Reported 12/16/17 17:20 Absolute Neuts (auto) Not Reported 12/16/17 17:20 Absolute Lymphs (auto) Not Reported 12/16/17 17:20 Absolute Monos (auto) Not Reported 12/16/17 17:20 Absolute Eos (auto) Not Reported 12/16/17 17:20 Absolute Basos (auto) Not Reported 12/16/17 17:20 Absolute Nucleated RBC Not Reported 12/16/17 17:20 Immature Gran % Not Reported 12/16/17 17:20 Seg Neutrophils % 55.1 % 12/16/17 17:20 Band Neutrophils % 0.0 % 12/16/17 17:20 Lymphocytes % 35.7 % 12/16/17 17:20 Monocytes % 7.2 % 12/16/17 17:20 Eosinophils % 2.0 % 12/16/17 17:20 Basophils % 0.0 % 12/16/17 17:20 Metamyelocytes % 0.0 % 12/16/17 17:20 Myelocytes % 0.0 % 12/16/17 17:20 Promyelocytes % 0.0 % 12/16/17 17:20 Blast Cells % 0.0 % 12/16/17 17:20 Immature Gran # Not Reported 12/16/17 17:20 Absolute Seg Neuts 3.00 10^/uL (1.70-6.50) 12/16/17 17:20 Absolute Band Neuts 0.00 10^3/uL (0.00-0.70) 12/16/17 17:20 Absolute Lymphocytes 1.95 10^3/uL (1.00-3.00) 12/16/17 17:20 Absolute Monocytes 0.39 10^3/uL (0.30-0.80) 12/16/17 17:20 Absolute Eosinophils 0.11 10^3/uL (0.03-0.40) 12/16/17 17:20 Absolute Basophils 0.00 10^3/uL (0.02-0.10) L 12/16/17 17:20 Absolute Metamyelocyte 0.00 10^3/mL (0.00-0.00) 12/16/17 17:20 Absolute Myelocytes 0.00 10^3/mL (0.00-0.00) 12/16/17 17:20 Absolute Promyelocytes 0.00 10^3/uL (0.00-0.00) 12/16/17 17:20 Absolute Plasma Cells 0.00 10^3/uL (0.00-0.00) 12/16/17 17:20 Nucleated RBCs 0 /100 WBC (0-0) 12/16/17 17:20 RBC/WBC/PLT Morphology NORMAL (NORMAL) 12/16/17 17:20 Absolute Blast Cells 0.00 10^3/uL (0.00-0.00) 12/16/17 17:20 Plasma Cells % 0.0 % 12/16/17 17:20 Platelet Estimate ADEQUATE (ADEQ) 12/16/17 17:20 PT 12.6 SEC (12.0-15.0) 12/16/17 17:20 INR 0.92 (0.83-1.16) 12/16/17 17:20 APTT 22.3 SEC (23.0-38.0) L 12/16/17 17:20 POC Sodium 144 mEq/L (135-145) 12/16/17 17:21 Sodium 140 mEq/L (135-145) 12/16/17 17:20 POC Potassium 3.3 mEq/L (3.3-5.0) 12/16/17 17:21 Potassium 3.7 mEq/L (3.3-5.0) 12/16/17 17:20 POC Chloride 105 mEq/L (97-110) 12/16/17 17:21 Chloride 106 mEq/L (97-110) 12/16/17 17:20 Carbon Dioxide 23 mEq/l (22-31) 12/16/17 17:20 Anion Gap 11 mEq/L (8-16) 12/16/17 17:20 POC BUN 12 mg/dL (7-23) 12/16/17 17:21 BUN 13 mg/dL (7-23) 12/16/17 17:20 Creatinine 0.6 mg/dL (0.6-1.0) 12/16/17 17:20 POC Creatinine 0.6 mg/dL (0.6-1.0) 12/16/17 17:21 Estimated GFR > 60 12/16/17 17:20 Glucose 107 mg/dL (70-100) H 12/16/17 17:20 POC Glucose 108 mg/dL (70-100) H 12/16/17 17:21 Calcium 9.6 mg/dL (8.5-10.4) 12/16/17 17:20 Imaging Review: Imaging Impressions Head CT 12/16/17 16:55 Impression: 1. Decrease in size of the previously noted left subdural hematoma with resolution of mass effect. 2. No definite acute cortical ischemia is identified. Results called and discussed with Chidi Alford MD on December 16, 2017 at 1710 hours. Head CTA 12/16/17 17:10 Impression: Negative CT angiography of the neck with no arterial occlusive disease identified. CT Angiography of the Head With Attention to the [place] Reason for examination: Worsening headache; evaluate for arterial occlusive disease. Technique: A spiral acquisition was performed from the base of the brain to the vertex during rapid intravenous administration of 85 mL of Isovue-370. This contrast volume was utilized for evaluation of the neck and head. Axial images are obtained at 0.6 mm thickness and the examination is reviewed on the workstation in multiple window and level settings. Sagittal and coronal reformats are performed and three-dimensional reformations are performed by the radiologist on the workstation. Dose reduction techniques were utilized. Findings: There is excellent arterial opacification. The great vessels at the base of the brain are normal in appearance. The anterior and middle cerebral arteries appear normal. The [place] is intact with both anterior and posterior communicating arteries identified. The basilar artery as well as posterior cerebral arteries are normal. No regions of stenosis are identified. No hemorrhages are seen and no vascular malformations are identified. No areas of abnormal perfusion are identified and there are no findings to suggest cortical ischemia. The left subdural hematoma is noted and this was described on noncontrast CT scan of the head performed earlier today. Impression: 1. Negative CT angiography of the head with attention to the great vessels of the [place]. 2. See above report for additional findings. Results called and discussed with CHIDI ALFORD M.D. on 12/16/2017 at 18:08. Note: All stenoses are calculated using NASCET Criteria. Neck CTA 12/16/17 17:10 Impression: Negative CT angiography of the neck with no arterial occlusive disease identified. CT Angiography of the Head With Attention to the [place] Reason for examination: Worsening headache; evaluate for arterial occlusive disease. Technique: A spiral acquisition was performed from the base of the brain to the vertex during rapid intravenous administration of 85 mL of Isovue-370. This contrast volume was utilized for evaluation of the neck and head. Axial images are obtained at 0.6 mm thickness and the examination is reviewed on the workstation in multiple window and level settings. Sagittal and coronal reformats are performed and three-dimensional reformations are performed by the radiologist on the workstation. Dose reduction techniques were utilized. Findings: There is excellent arterial opacification. The great vessels at the base of the brain are normal in appearance. The anterior and middle cerebral arteries appear normal. The [place] is intact with both anterior and posterior communicating arteries identified. The basilar artery as well as posterior cerebral arteries are normal. No regions of stenosis are identified. No hemorrhages are seen and no vascular malformations are identified. No areas of abnormal perfusion are identified and there are no findings to suggest cortical ischemia. The left subdural hematoma is noted and this was described on noncontrast CT scan of the head performed earlier today. Impression: 1. Negative CT angiography of the head with attention to the great vessels of the [place]. 2. See above report for additional findings. Results called and discussed with CHIDI ALFORD M.D. on 12/16/2017 at 18:08. Note: All stenoses are calculated using NASCET Criteria. Visualized and Interpreted EKG results: Yes EKG Interpretation: Positive for: normal sinsus rhythm, NS ST wave abnormalities Assessment & Plan Assessment: 67 yo F w/ hx of HTN, DM, and breast CA presents with neurologic symptoms concerning for stroke vs. seizure. Plan: 1. Aphasia, ?facial droop - Symptoms noted around 1 PM; facial droop resolved and only mild word finding difficulty remains. Patient is not a tPA candidate due to recent, traumatic SDH. [facility] evaluated patient and thought symptoms could be explained by seizure activity. CTH shows improvement in known SDH and CTA Head/Neck revealed no acute findings. - Keppra increased to 1000 mg BID - MRI Brain for further evaluation - TTE w/ bubble ordered - Monitor on telemetry - PT/OT/FURNACE MASON evals - Neurology consult placed - Lipid panel, A1c with AM labs 2. Hx of SDH - Traumatic, suffered about 3 weeks ago after a fall. CTH on this admission shows improvement and resolution of mass effect. - Keppra increased to 1,000 mg BID as above 3. HTN - Allow for some permissive HTN tonight, will resume home HTN meds tomorrow. - Amlodipine, Losartan continued 4. DM - On metformin and glipizide as outpatient. - Will continue glipizide - Hold metformin for 48 hours after IV contrast - Monitor BG ACHS; D50 IV PRN for hypoglycemia 5. Hypothyroid - Continue LTX Diet - Regular Code - Full Ppx - SCDs Dispo - Admit under observation status
[2017-12-17] MEDS ORDERED: traZODone 50 MG TAB PO PRN (00:31)
[2017-12-17] MEDS ORDERED: FLUTICASONE NASAL 120 SPRAYS/16 GM MDI EACHNARE PRN (00:31)
[2017-12-17 05:11] LABS: PLATELET COUNT 202 10^3/uL (150-400)
[2017-12-17] MEDS ORDERED: LEVOTHYROXINE 150 MCG TAB PO SCH (06:00)
[2017-12-17 08:43] VITALS: BP 130/56
[2017-12-17] MEDS ORDERED: ATORVASTATIN CALCIUM 10 MG TAB PO SCH (09:00)
[2017-12-17] MEDS ORDERED: amLODIPine BESYLATE 5 MG TAB PO SCH (09:00)
[2017-12-17] MEDS ORDERED: levETIRAcetam 500 MG TAB PO SCH (09:00)
[2017-12-17] MEDS ORDERED: glipiZIDE 5 MG TAB PO SCH (09:00)
[2017-12-17] MEDS ORDERED: LOSARTAN POTASSIUM 50 MG TAB PO SCH (09:00)
[2017-12-17] MEDS ORDERED: SERTRALINE HCL 50 MG TAB PO SCH (09:00)
--- NOTE | 2017-12-17 09:15 | GCON ---
Alexa is a 67-year-old woman who is here in the hospital because of episode of trouble speaking and f acial droop on the right. She said she was at her friend's house and watching TV. At 1 p.m., she st arted having trouble speaking. She said she knew what she wanted to say but the words just would not flow and her speech was a little slurred and maybe some right facial droop. She has a known subdura l hematoma on the left recently evaluated and is recovering from that, but there is still some residu al hematoma seen on the imaging. Her large vessels show no stenoses. An MRI does not show evidence of stroke, but simply residual left subdural hematoma. She said she feels back to normal now, but s he had some pre admission weakness already known in the right arm from her subdural hematoma. FAMILY HISTORY: Notable for stroke. History of lumpectomy for breast cancer. She has type 2 diabet es, hypertension, hyperlipidemia, and some anxiety and depression in the past, as well as obesity and hypothyroidism. No smoking. No alcohol. MEDICATIONS: Tylenol as needed, Lipitor, Norvasc, Flonase nasal spray, Glucotrol, Keppra 1000 mg twi ce daily after coming in on 750 twice daily. Trazodone, Zoloft, Zofran, Cozaar. ALLERGIES: Codeine. PHYSICAL EXAM: The temperature is 37, pulse of 67, blood pressure 130/56, respirations 18. GENERAL: She is well developed in no acute distress. HEENT: Eyes are clear. Alert and attentive, fully or iented. She has fluent speech now. Pupils are 3 mm and reactive. She has mild right upper extremit y weakness, but no right facial droop. IMPRESSION: The patient has mild weakness of the right arm which would qualify for NIH Stroke Scale of 1. Otherwise, resolution of the facial droop and slurring speech and aphasia. I do not think she has had a TIA or stroke, particularly supported by the negative MRI. The subdural likely induced a partial seizure phenomena. She is not a candidate currently for anticoagulation and continue to daniele tor her as appropriate and I think she could be discharged on 1000 mg twice daily of the Keppra and t hen followup with us in the office in a month. Total unit time of 50 minutes. /[id number]/MODL
--- NOTE | 2017-12-17 11:53 | ASDISCHSUM ---
Discharge Information Plan Status:Home with Home Health Medically Cleared to Leave:12/17/2017 Discharge Date:12/17/2017 02:12 PM CM D/C Disposition:Home Health Service ADT D/C Disposition:Home Health Service Projected Discharge Date:12/17/2017 02:00 PM Transportation at D/C:Friend Discharge Delay Reason: Follow-Up Date:12/17/2017 02:00 PM Discharge Slot: Final Diagnosis:Difficulty talking, Hx SDH-Sz Placement Information Referral Type:*Home Health Care Services Referral ID:[id number] Provider Name:[facility] [place] Address 1:[address] Phone Number: Address 2: Fax Number: City:[place] Selection Factors: State:[place] Patient Contact Information Contact Name:MELANIE Relationship:Son Address:[address] Home Phone: City:[place] Alternate Phone: [facility] Code:[place] Email: Financial Information Financial Class:[facility] Primary Plan Desc:[facility] Primary Plan Number:[id number] Secondary Plan Desc: Secondary Plan Number: Assessment Information [facility] CM Progress Note CM Note CM Note Notes: 67yr old female admitted for difficulty speaking. She has a Hx of SDH, Aphasia, DM, HTN, Breast CA. Tx with Keppra. Symptoms have resolved. Therapies to eval for discharge needs. CM to follow. Date Signed: 12/17/2017 11:51 AM Electronically Signed By:Marta Vidal LCSW Case Management Discharge Plan Note Case Management Discharge Discharge Order Complete? Answers: Yes Patient to Obtain Answers: via Family Medications Transportation Arranged Answers: Family/Friends Transport will Pick (Date 12/17/2017 12:00 PM & Time) Family Notified Answers: Yes Notes: Family to transport Discharge Comments Notes: Patient's symptoms have resolved. No discharge needs. Patient has been discharged. Date Signed: 12/17/2017 11:53 AM Electronically Signed By:Marta Vidal LCSW [facility] CM Progress Note CM Note CM Note Notes: This CM was contacted by ST who reported that pt would need HC. Patient was discharged before PT/OT evaluated. Patient is out of [facility] territory. Contacted [facility] and sent them the Orders. The MD wrote for RN/PT/OT/ST. The RN can oopen and decide whether or not patient needs PT and OT. Date Signed: 12/17/2017 02:35 PM Electronically Signed By:Marta Vidal LCSW Intervention Information
--- NOTE | 2017-12-17 13:03 | PDIAF ---
- Diagnosis Diagnosis: seizure Code Status: Full Code - Medication Management Discharge Medications: Medications to Continue on Transfer metFORMIN HCL [Glucophage 1000 mg] 1,000 mg PO BIDMEAL 11/08/11 [Last Taken ] Fluticasone Nasal [Flonase Nasal [place]] 1 sprays EACHNARE DAILY PRN 11/21/17 [ Last Taken 11/20/17] Losartan Potassium 100 mg PO BID 11/21/17 [Last Taken 12/16/17] Sertraline HCl [Zoloft 50mg (*)] 50 mg PO DAILY 11/21/17 [Last Taken 12/16/17] glipiZIDE [Glipizide] 5 mg PO BID 11/21/17 [Last Taken 12/15/17] traZODone [traZODONE 50MG (*)] 50 mg PO HS PRN 11/21/17 [Last Taken 11/20/17] Acetaminophen [Tylenol ES 500 mg (*)] 1,000 mg PO Q6 PRN 12/03/17 [Last Taken Unknown] Levothyroxine [Synthroid 150 mcg (*)] 150 mcg PO DAILY06 12/03/17 [Last Taken ] amLODIPine BESYLATE [Norvasc 5 mg (*)] 5 mg PO DAILY 12/16/17 [Last Taken ] Atorvastatin Calcium [Lipitor 40 mg (*)] 40 mg PO DAILY #30 tab 12/17/17 [Last Taken Unknown] levETIRAcetam [Keppra] 1,000 mg PO BID #60 tablet 12/17/17 [Last Taken Unknown] Discharge Medications: Refer to the Discharge Home Medication list for PRN reason. - Orders Services needed: Home Care, Registered Nurse, Physical Therapy, Occupational Therapy, Speech Language Pathologist Home Care Face to Face: I certify that this patient was under my care and that I had the required [id number] encounter meeting the encounter requirements on the discharge day. My findings support the fact that the patient is homebound as defined in Home Care Face to Face Continued: CMS Chapter 7 Medicare Benefits Manual 30.1.1 , The condition of the patient is such that there exists a normal inability to leave home and consequently, leaving home would require a considerable and taxing effort. Diet Recommendation: no restrictions on diet Additional Instructions: Hold metformin for 48 hours post IV contrast - Follow Up Care Current Providers and Referrals: Claude Collier MD [Primary Care Provider] - As per Instructions
--- NOTE | 2017-12-17 14:36 | ASMTCMCOM ---
CM Note CM Note Notes: This CM was contacted by ST who reported that pt would need HC. Patient was discharged before PT/OT evaluated. Patient is out of [facility] territory. Contacted [facility] and sent them the Orders. The MD wrote for RN/PT/OT/ST. The RN can oopen and decide whether or not patient needs PT and OT. Date Signed: 12/17/2017 02:35 PM Electronically Signed By:Marta Vidal LCSW
--- NOTE | 2017-12-17 15:42 | GDS ---
DISCHARGE DIAGNOSES: 1. Partial seizure with aphasia. 2. Recent subdural hematoma. 3. Diabetes type 2. 4. Hypertension. 5. Obesity, BMI of 34. 6. Hyperlipidemia. HISTORY OF PRESENT ILLNESS: Alexa is a 67-year-old, Formerly [employer] employee, who recently fell and sustained a subdural hematoma. She now re-presents to the hospital after developing acute o nset of aphasia while watching the [employer] game. There was some associated possible right-sided faci al drooping. [place] evaluation in the emergency room was more suspicious for seizure than stroke, given her recent subdural hematoma. She was already on Keppra 500 mg p.o. twice daily, and it was in creased to 1000 mg p.o. twice daily. She was admitted to the hospital. An MRI of the brain was negative, except for improving subdural he matoma. CT angiogram of the head and neck were negative. She was seen in consultation with Dr. Jamari bee of Neurology. He agreed this was likely a partial seizure. He recommended increasing her Kepp ra to 1000 mg p.o. twice daily upon discharge. Her aphasia completely resolved, and she is back to [facility]. For this possible stroke evaluation, we did do a lipid panel and found that her LDL is 161 which, giv en her diabetes, we would hope for more optimal control. She is on simvastatin 20 mg. I counseled h er regarding her uncontrolled hyperlipidemia. She does desire changing her statin drug at this time. I will discharge her on Lipitor 40 mg p.o. daily, and can go up to 80 mg if needed upon outpatient followup. DISCHARGE MEDICATIONS: Please see computer record for full detailed list. New medications: 1. Keppra increased to 1000 mg p.o. twice daily. 2. Statin drug changed from simvastatin to atorvastatin 40 mg p.o. daily. ADDITIONAL DISCHARGE INSTRUCTIONS: 1. Hold metformin for 48 hours post IV contrast. 2. Follow up with primary care, Dr. Collier. Greater than 30 minutes' time spent arranging this discharge. Patient seen and examined by me on the day of discharge. /[id number]/MODL
--- NOTE | 2017-12-17 16:56 | ASMTCMCOM ---
CM Note CM Note Notes: Mickey called this CM and said that they weren't able to staff her. Sent a referral to [facility]. Date Signed: 12/17/2017 04:55 PM Electronically Signed By:Marta Vidal LCSW
--- NOTE | 2017-12-17 16:57 | ASMTLACE ---
LACE Length of stay for Answers: 1 day current admission Comorbidities - select Answers: Diabetes (uncontrolled or all that apply controlled) Other Notes: HTN; Hypothyroid, SDH # of Emergency department Answers: 1-2 visits in the last 6 months Social determinants Answers: Mental health diagnosis (anxiety, depression, pers onality disorders, etc.) Score: 7 Date Signed: 12/17/2017 04:57 PM Electronically Signed By:Marta Vidal LCSW
== END 2017-12-17 14:12 | disposition home health service (06) ==
LOC: F2N 19:50
PROVIDERS: ADMIT Internal Medicine; ATTEND Internal Medicine
DX: R56.9 Unspecified convulsions (principal); R47.01 Aphasia; I10 Essential (primary) hypertension; E03.9 Hypothyroidism, unspecified; I62.03 Nontraumatic chronic subdural hemorrhage; E11.9 Type 2 diabetes mellitus without complications; E66.9 Obesity, unspecified; Z85.3 Personal history of malignant neoplasm of breast; Z68.34 Body mass index [BMI] 34.0-34.9, adult
CPT/HCPCS: 70450; 70496; 70498; 70551; 92523; 93005; 96365; 96375; 99285; G0378; 82435-PO; 82565-PO; 82947-PO; 84132-PO; 84295-PO; 84520-PO; 85014-PO; J1953; J2060; Q9967

== ENCOUNTER → 2017-12-26 | Outpatient (CLI) | payer OTHER | LOC: FIMAGING 15:52 | PROVIDERS: ATTEND Neurological Surgery | DX: S06.5X0D Traumatic subdural hemorrhage without loss of consciousness, subsequent encounter (principal); J32.3 Chronic sphenoidal sinusitis ==

== ENCOUNTER → 2018-01-21 | Outpatient (CLI) | payer OTHER | LOC: FIMAGING 13:01 | PROVIDERS: ATTEND Internal Medicine | DX: R11.2 Nausea with vomiting, unspecified (principal); Z87.820 Personal history of traumatic brain injury ==

== ENCOUNTER → 2018-04-08 | Outpatient (CLI) | payer OTHER | LOC: FIMAGING 07:56 | PROVIDERS: ATTEND Internal Medicine | DX: Z12.31 Encounter for screening mammogram for malignant neoplasm of breast (principal); Z85.3 Personal history of malignant neoplasm of breast ==